=== PATIENT | female | born 1970 ===

== ENCOUNTER 2024-03-27 05:15 | Day surgery (SDC) | payer OTHER ==
[~2024-03-27 05:15] MED LIST: OMEPRAZOLE MAGN20 MG; SYMAX-SR0.375 MG PO
[2024-03-27] MEDS ORDERED: MORPHINE SULFATE 4 MG/ML VIAL IV ONE (09:45)
[2024-03-27] MEDS ORDERED: CEFAZOLIN SODIUM 1,000 MG VIAL IV ONE (15:45)
[2024-03-27] MEDS ORDERED: LIDOCAINE HCL 1%/EPINEPHRINE 20ML VIAL IJ ONE (15:45)
== END 2024-03-27 11:40 | disposition home or self-care (01) ==
LOC: CIR.AMB 05:15
PROVIDERS: ATTEND Surgery Surgery of the Hand
DX: M65.842 Other synovitis and tenosynovitis, left hand (principal); Z88.6 Allergy status to analgesic agent